=== PATIENT | female | born 1990 | race Caucasian/White ===

== ENCOUNTER 2017-01-29 19:57 | Emergency (ER) | payer MEDICAID ==
[~2017-01-29] VITALS: Ht 167.6 cm; Wt 51.2 kg
[2017-01-29 19:58] VITALS: BP 117/78
== END 2017-01-29 21:50 | disposition home or self-care (01) ==
LOC: ED 21:33
DX: H66.001 Acute suppurative otitis media without spontaneous rupture of ear drum, right ear (principal)
CPT/HCPCS: 99283

== ENCOUNTER 2019-01-03 19:54 | Emergency (ER) | payer MEDICAID ==
[~2019-01-03] VITALS: Ht 167.6 cm; Wt 55.8 kg
[2019-01-03] MEDS ORDERED: BICILLIN-LA 1,200,000 UNITS/2 ML IM ONE (21:00)
[2019-01-03 21:29] VITALS: BP 121/74
== END 2019-01-03 21:31 | disposition home or self-care (01) ==
LOC: ED 21:05
DX: J02.0 Streptococcal pharyngitis (principal); Z85.41 Personal history of malignant neoplasm of cervix uteri
CPT/HCPCS: 96372; 99283; J0561; J7512